=== PATIENT | male | born 1990 | race Caucasian/White ===

== ENCOUNTER 2021-08-08 14:45 | Emergency (ER) | payer OTHER ==
[~2021-08-08] VITALS: Ht 177.8 cm; Wt 104.3 kg
[2021-08-08 14:49] VITALS: BP 167/96
--- NOTE | 2021-08-08 15:19 | NUR ---
BIB SELF C/O 09/27 RIGHT FOOT PAIN, SWELLING X 2 DAYS. DENIES N/V/D; SKIN IS PINK/WARM/DRY; AAOX4 WITH EVEN AND UNSTEADY GAIT; LUNGS CLEAR BL; HR EVEN AND REGULAR; PT DENIES ANY FEVER, CP, SOB, OR COUGH AT THIS TIME.
--- NOTE | 2021-08-08 15:47 | NUR ---
PT AMB TO BED 9.
[2021-08-08] MEDS ORDERED: KETOROLAC 30 MG/ML VIAL IM ONE (15:55)
--- NOTE | 2021-08-08 16:02 | NUR ---
XRAY AT BEDSIDE
[2021-08-08] MEDS: KETOROLAC 30 MG/ML VIAL IM ONE (16:10)
[2021-08-08] MEDS ORDERED: NON ADHERENT DRESSING TP SCH (16:45)
[2021-08-08] MEDS ORDERED: BACI1PAC6 TP (16:46)
[2021-08-08] MEDS ORDERED: CEPH-588 PO (16:46)
[2021-08-08] MEDS ORDERED: IBUP-2213 PO (16:46)
[2021-08-08] MEDS: BACITRACIN OINT 500 UNITS/GM PKT TP ONE (16:53)
--- NOTE | 2021-08-08 17:04 | NUR ---
Patient discharged with v/s stable. Written and verbal after care instructions given and explained. Patient alert, oriented and verbalized understanding of instructions. Ambulatory with steady gait. All questions addressed prior to discharge. ID band removed. Patient advised to follow up with PMD. Rx of KEFLEX, MOTRIN, AND BACITRACIN given. Patient educated on indication of medication including possible reaction and side effects. Opportunity to ask questions provided and answered.
[2021-08-08 17:05] VITALS: BP 147/86
== END 2021-08-08 17:05 | disposition home or self-care (01) ==
LOC: MED 14:45
DX: S90.31XA Contusion of right foot, initial encounter (principal); R21 Rash and other nonspecific skin eruption; X58.XXXA Exposure to other specified factors, initial encounter; Y93.89 Activity, other specified; Y92.89 Other specified places as the place of occurrence of the external cause; Y99.8 Other external cause status
CPT/HCPCS: 73630; 96372; 99283; J1885; Q0092